=== PATIENT | male | born 1995 | race African-American/Black ===

== ENCOUNTER 2018-05-04 01:05 | Emergency (ER) | payer SELFPAY ==
[~2018-05-04] VITALS: Ht 190.5 cm; Wt 83.9 kg
[2018-05-04 01:10] VITALS: BP 135/81
[2018-05-04] MEDS ORDERED: Albuterol ud Inhalation HHN ONE (01:30)
[2018-05-04] MEDS ORDERED: Ipratropium 0.02% Inh Soln 2.5ml UD HHN ONE (01:30)
--- NOTE | 2018-05-04 01:36 | Emergency Room Report ---
History of Present Illness General Chief Complaint: Asthma Source: Patient Present Illness HPI This is a 22-year-old male with a history of asthma. He recently moved here from [place]. He left his [facility] and [place]. He presents with [place] shortness of breath. His been ongoing for about a week now. Exacerbation secondary to the weather, small, dosed at work, and there are cats and dogs in the apartment. Worse with lying flat. Coughing. Wheezing. No fever chills. Also with chest tightness and pain secondary to coughing and wheezing. Similar symptom in the past. Last hospital visit was over a year ago. No intubation. Last steroid use was also over a year ago. Allergies: Coded Allergies: PEANUT (Verified Allergy, Unknown, 05/04/18) PENICILLINS (Verified Allergy, Unknown, 05/04/18) Patient History Past Medical History: see triage record, old chart reviewed, asthma Past Surgical History: none Pertinent Family History: none Social History: Denies: smoking Immunizations: other Reviewed Nursing Documentation: PMH: Agreed; PSxH: Agreed Nursing Documentation-PMH Past Medical History: No History, Except For Hx Asthma: Yes Review of Systems Eye: Denies: eye pain, blurred vision ENT: Denies: ear pain, nose congestion, throat swelling Respiratory: Reports: cough, shortness of breath, wheezing Cardiovascular: Denies: chest pain, palpitations Gastrointestinal: Denies: abdominal pain, diarrhea, nausea, vomiting Musculoskeletal: Denies: back pain, joint pain Skin: Denies: rash Neurological: Denies: headache, numbness Endocrine: Denies: increased thirst, increased urine Hematologic/Lymphatic: Denies: easy bruising All Other Systems: negative except mentioned in HPI Physical Exam Vital Signs Date Time Temp Pulse Resp B/P (MAP) Pulse Ox O2 Delivery O2 Flow Rate FiO2 05/04/18 01:07 98.2 60 17 124/77 98 05/04/18 01:10 Room Air vitals normal Sp02 EP Interpretation: reviewed, normal General Appearance: well appearing, no apparent distress, alert Head: normocephalic, atraumatic Eyes: bilateral eye PERRL, bilateral eye EOMI ENT: hearing grossly normal, normal pharynx Neck: full range of motion, supple, no meningismus Respiratory: chest non-tender, decreased breath sounds, accessory muscle use, wheezing Cardiovascular #1: regular rate, rhythm, no murmur Gastrointestinal: normal bowel sounds, non tender, no mass, no organomegaly, no bruit, non-distended Musculoskeletal: back normal, gait/station normal, normal range of motion Psychiatric: mood/affect normal Skin: warm/dry Medical Decision Making Diagnostic Impression: Primary Impression: Asthma attack Qualified Codes: J45.21 - Mild intermittent asthma with (acute) exacerbation ER Course Patient presents with asthma exacerbation. He cleared up after neb as a treatment. No evidence of pneumonia, rest or distress, ACS, PE to name a few. Last Vital Signs Date Time Temp Pulse Resp B/P (MAP) Pulse Ox O2 Delivery O2 Flow Rate FiO2 05/04/18 01:30 65 17 Room Air 05/04/18 01:10 97.8 135/81 98 Status: improved Disposition: HOME, SELF-CARE Condition: Stable Scripts Prednisone* (PREDNISONE*) 20 Mg Tablet 40 MG ORAL DAILY, #8 TAB Prov: Mina Robert MD 05/04/18 Albuterol Sulfate* (ALBUTEROL SULFATE MDI*) 8.5 Gm Hfa.aer.ad 2 PUFF INH Q4H PRN for cough/wheezing, #1 EA 0 Refills Prov: Mina Robert MD 05/04/18 Patient Instructions: Asthma, Adult Additional Instructions: Follow-up with your doctor in 7 days. Return if symptom worsen. Mina Robert MD May 04, 2018 01:36
[2018-05-04] MEDS ORDERED: ALBUTEROL SULF8.5 GM INH (02:21)
[2018-05-04] MEDS ORDERED: PREDNISONE20 MG ORAL (02:21)
== END 2018-05-04 02:25 | disposition home or self-care (01) ==
LOC: EMR 01:30
DX: J45.21 Mild intermittent asthma with (acute) exacerbation (principal); Z88.0 Allergy status to penicillin; Z91.010 Allergy to peanuts
CPT/HCPCS: 94640; 94664; 99283; J7512